=== PATIENT | female | born 1965 ===

== ENCOUNTER → 2020-06-22 | Outpatient (CLI) | payer SELFPAY ==
[~2020-06-22] MED LIST: COVID-19 VACCINE (PFIZER)/PF 30 MCG/0.3 ML VIAL IM ONE; EPINEPHRINE INJ/PF 1 MG/1 ML AMPULE IM PRN
--- OUTSIDE RECORDS SUMMARY | 2020-06-25 10:31 | XMS REPORT ---
:1965 Author Organization [facility] Address [facility] [place] [address] [place] [address] Care Team Providers Name Role Phone KIRIT SOLIZ Primary Care Physician Unavailable NATALEE FISHER Attending Clinician Unavailable Deepak Attending Clinician Unavailable JR MUNOZ Attending Clinician Unavailable Allergies, Adverse Reactions, Alerts Allergy Allergy Type Status Severity Reaction(s) Onset Inactive Treat ing Comments Name Date Date Clinician No Known Propensity Active 2015-05 Drug to adverse - Allergies reactions 00:00: 00 Medications Ordered Filled Start Stop Current Ordering Indication Dosage Frequency Signature Comments Components Medication Medication Date Date Medication? Clinician (SIG) Name Name tamoxifen Yes Malignant TAKE 1 TAKE 1 (NOLVADEX) -14 neoplasm of TABLET BY TABLET BY 20 MG 00:00: upper-outer MOUTH MOUTH tablet 00 quadrant of EVERY DAY GARRETT RY DAY right breast in female, estrogen receptor positive ([facility]) tamoxifen 2019-05- No Malignant 20mg Take 1 Take 1 (NOLVADEX) -22 06-14 neoplasm of tablet (2 0 tablet 20 MG 00:00: 00:00 upper-outer mg total) (20 mg tablet 00 :00 quadrant of by mouth tota l) by right daily. mouth breast in daily. female, estrogen receptor positive ([facility]) SYNTHROID 2019-05 Yes SYNTHROID 88 mcg 0-15 88 mcg tablet 00:00: tablet 00 cholecalcif 2018-05 Yes 5000U Take 5,000 Ta ke daniel, 2-10 Units by 5,000 vitamin D3, 08:13: mouth Units b y (VITAMIN 48 daily. mouth D3) 5,000 daily. unit tablet fish 2018-05 No 2g Take 2 g Take 2 g oil-omega-3 2-10 by mouth by mo ut fatty acids 08:13: daily. daily. 300-1,000 48 mg capsule tamoxifen 2018-05- No Malignant 20mg Take 1 Take 1 (NOLVADEX) 206-13 neoplasm of tablet (2 0 tablet 20 MG 00:00: 00:00 upper-outer mg total) (20 mg tablet 00 :00 quadrant of by mouth tota l) by right daily. mouth female daily. breast ([facility]) tamoxifen 2018- No Malignant 20mg Take 1 Take 1 (NOLVADEX) 06-30 neoplasm of tablet (2 0 tablet 20 MG 00:00: 00:00 upper-outer mg total) (20 mg tablet 00 :00 quadrant of by mouth tota l) by right daily. mouth female daily. breast ([facility]) calcium/mag 2017-05- No calcium/ma /D2/mv,iron 2-05 12-10 g/D2/mv,ir ,min/Zn 13:10: 00:00 on,min/Zn (WHITNEY-MAG- 46 :00 (WHITNEY-MAG-V T IT D2-MULTIVIT D2-MULTIVI REDDY-ZN TAMIN-ZN ORAL) ORAL) alendronate 2017-05- No alendronat sodium 2-05 12-10 e sodium (ALENDRONAT 13:10: 00:00 (ALENDRONA E ORAL) 46 :00 TE ORAL) alendronate 2017-05 No alendronat sodium 2-05 e sodium (ALENDRONAT 13:06: (ALENDRONA E ORAL) 15 TE ORAL) calcium/mag 2017-05 No calcium/ma /D2/mv,iron 2-05 g/D2/mv,ir ,min/Zn 13:06: on,min/Zn (WHITNEY-MAG- 14 (WHITNEY-MAG-V T IT D2-MULTIVIT D2-MULTIVI REDDY-ZN TAMIN-ZN ORAL) ORAL) DOCOSAHEXAN 2017-05 2018- No 1{capsu Take 1 Take 1 OIC 2-05 12-05 le} capsule by capsule ACID/EPA 13:06: 00:00 mouth by mouth (FISH OIL 14 :00 daily. daily. ORAL) tamoxifen 2018- No Malignant TAKE 1 TAKE 1 (NOLVADEX) 06-26 neoplasm of TABLET TA BLET 20 MG 00:00: 00:00 upper-outer DAILY WITH DA VANDANA tablet 00 :00 quadrant of WITH right BREAKFAST BREAKFAST female breast (CMS-HCC) DOCOSAHEXAN 2016-05 No 1{capsu Take 1 Take 1 OIC 2-04 le} capsule by capsule ACID/EPA 08:19: mouth by mouth (FISH OIL 11 daily. daily. ORAL) levothyroxi 2015-05 No Take by Take by ne mouth. mouth. (SYNTHROID) 00:00: 75 MCG 00 tablet levothyroxi 2015-05- No Take by Take by ne 04-22 mouth. mouth. (SYNTHROID) 00:00: 00:00 75 MCG 00 :00 tablet cholecalcif 2015-05 2018- No 2000U Take 2,000 Ta ke daniel, 07-27 12-05 Units by 2,000 vitamin D3, 12:48: 00:00 mouth Units b y 2,000 unit 57 :00 daily with mout h Tab breakfast. daily with breakfast . fish Yes 2g Take 2 g Take 2 g oil-omega-3 by mouth by mo uth fatty acids daily. daily. 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-05-09 syndrome syndrome 2-10 08:55:52 00:00: 00 Osteopenia Osteopenia Condition Active 2017-11-12 of multiple of multiple 6-15 08:55:24 sites sites 00:00: 00 Malignant Malignant Condition Inactiv 2015-052019-05-09 neoplasm of neoplasm of e 2- 07:55:22 upper-outer upper-outer 00:00: quadrant of quadrant of 00 right right breast in breast in female, female, estrogen estrogen receptor receptor positive positive Hyperlipide Hyperlipide Condition Inactiv 2015-052016-05-26 Overview: myrna myrna e 07-27 08:16:35 Overvie w: 00:00: controll e 00 d by t Other and Other and [id number] Active 2020-04-22 Overview: unspecified unspecified 01-01 09:30:47 Overview: hyperlipide hyperlipide 00:00: controlle myrna myrna 00 d by t Overview : Overview : controll e d by t Vitamin D Vitamin D Condition Active 2016-05-26 deficiency deficiency 2-18 08:16:35 00:00: 00 Malignant Malignant [id number] Active 2020-04-22 Overview: neoplasm of neoplasm of 2-18 09:30:47 Overview: upper-outer upper-outer 00:00: Right: quadrant of quadrant of 00 dx'd right right . female female ER/DE breast breast postiive , [id number] variably positive . S/p lumpecto m y with SLND. DD ACx4 followed by Taxol complete d 05/2010 Hercepti n 04/2010- 1 05/2010. Adjuvant XRT 05/2010- 0 07/2010. Tamoxife n 07/2010- o ngoing. Procedures Procedure Date / Time Performed Performing Clinician Brett olson MAMMOGRAPHY 2019-05-25 22:46:00 Provider, Historical DEXA BONE DENSITY SKELETAL 2017-11-11 17:15:36 Nathaniel Munoz Am Results Test Description Test Time Test Comments Text Results Atomic Results Result Comments SARS-CoV-2 RNA Nose Ql ASHLYN+probe 2020-06-01 00:00:00 Test Item Value Reference Range Comments SARS-CoV-2 RNA Nose Ql ASHLYN+probe Detected [place] [facility] Case ID: (test code = [id number]) [id number] SARS-CoV-2 RNA Nose Ql ASHLYN+[id number] 00:00:00 Test Item Value Reference Range Comments SARS-CoV-2 RNA Nose Ql Detected [place] [facility] Case ID: ASHLYN+probe (test code = [id number]) SARS-CoV-2 RNA Nose Ql [id number] 00:00:00 Test Item Value Reference Range Comments SARS-CoV-2 RNA Nose Ql Not detected [place] [facility] Case ASHLYN+probe (test code = ID: [id number]) #[id number] 00:00:00HM MAMMOGRAPHY (05/25/2019 5:46 PM EST)NarrativePerformed At #[id number] 17:30:01Dexa Bone Density Skeletal (11/11/2017 1:15 PM EDT)SpecimenImpressionsPerformed AtLow bone density (o steopenia). Followup evaluation in 2 years is recommended. Signed (Electronic Signature): 11/11/2017 5:32 PM Signed By: GIANFRANCO Mena RADNarrativePerformed AtExam:Bone Densitometry History: 51-year-old Postmenopausal female. Technique:Standard bone densitometry protocol. priors: None Findings: LUMBAR SPINE:The lumbar spine yields a T score of -1.0 for the L1-L4 region. LEFT FEMUR:The femoral neck yields a T score of: -1.3 The totalfemur yields a T score of: -0.6 RIGHT FEMUR: The femoral neck yields a T score of: -1.6 The total femur yields a T score of: -0.8 FRAX analysis reveals a 10 year probability of major osteoporotic fracture of4.9 % FRAX analysis reveals a 10 year probability of hip fracture of 0.4 % [facility] [place] RADProcedure NoteInterface, Rad Results In - 11/11/2017 5:34 PM EDTExam: Bone Densitometry History: 51-year-old Postmenopausal female. Technique: Standard bone densitometry protocol . priors: None Findings: LUMBAR SPINE: The lumbar spine yields a T score of -1.0 for theL1-L4 region. LEFT FEMUR: The femoral neck yields a T score of: -1.3 The total femur yields a T score of: -0.6 RIGHT FEMUR: The femoral neck yields a T score of: -1.6 The total femur yields a T score of: -0.8 FRAX analysis reveals a 10 year probability of major osteoporotic fracture of 4.9 % FRAX analysis reveals a 10 year probability of hip fracture of 0.4 % IMPRESSION: Low bone density (osteopenia). Followup evaluation in 2 years is recommended. Signed (Electronic Signature): 11/11/2017 5:32 PM Signed By: NICOLE Menaerforming OrganizationAddressCity/State/ZipcodePhone NumberBA[facility] [place] [address] [place] [address] Encounters Start End Encounter Admission Attending Care Care Encounter ID Date/Time Date/Time Type Type Clinicians Facility Department 2020-06-13 2020-06-13 Outpatient [facility] [id number] 00:00:00 00:00:00 2020-05-14 2020-05-14 Outpatient [facility] [id number] 00:00:00 00:00:00 [id number] 2020-04-22 2020-04-22 Outpatient [facility] [id number] 08:06:30 09:00:22 [id number] 2020-04-22 2020-04-22 [facility] [id number] 08:06:30 09:00:22 2020-04-22 2020-04-22 Outpatient [facility] [id number] 00:00:00 00:00:00 [id number] 2020-04-22 2020-04-22 [facility] [id number] 00:00:00 00:00:00 2019-11-06 2019-11-06 Outpatient Marina CONRAD 1 [id number] 08:59:00 23:59:00 CONSUELO 2019-08-11 2019-08-11 [facility] [id number] 00:00:00 00:00:00 2019-08-11 2019-08-11 [facility] [id number] 00:00:00 00:00:00 2019-08-11 2019-08-11 [facility] [id number] 00:00:00 00:00:00 2019-05-25 2019-05-25 [facility] [id number] 00:00:00 00:00:00 2019-05-09 2019-05-09 [facility] [id number] 07:52:13 08:48:55 2019-05-09 2019-05-09 Outpatient [facility] [id number] 07:52:13 08:48:55 [id number] 2019-05-09 2019-05-09 [facility] [id number] 00:00:00 00:00:00 2018-09-21 2018-09-21 R [facility] [id number] 13:17:57 15:10:52 [id number] 2018-09-21 2018-09-21 [facility] [id number] 13:17:57 14:17:57 2018-09-21 2018-09-21 [facility] [id number] 00:00:00 00:00:00 [id number] 2018-09-09 2018-09-09 [facility] [id number] _[id number] 13:58:35 15:21:58 [id number] 2018-09-09 2018-09-09 [facility] [id number] 13:58:35 15:21:58 2018-09-09 2018-09-09 [facility] [id number] 00:00:00 00:00:00 [id number] 2018-08-29 2018-08-29 LENA Johnson [id number] 13:30:00 13:30:00 Diagnosis Brennen [id number] 2018-08-26 2018-08-26 R [facility] [id number] _[id number] 14:18:57 15:10:58 [id number] 2018-08-26 2018-08-26 [facility] [id number] 14:18:57 15:10:58 2018-08-26 2018-08-26 R [facility] [id number] 00:00:00 00:00:00 [id number] 2018-08-22 2018-08-22 MARION [id number] [id number] 13:30:00 13:30:00 Diagnosis Brennen [id number] 2018-07-26 2018-07-26 [facility] [id number] 12:37:26 13:48:16 2018-07-26 2018-07-26 R [facility] [id number] _[id number] 12:37:26 13:48:16 [id number] 2018-07-26 2018-07-26 R [facility] [id number] 00:00:00 00:00:00 [id number] 2018-06-09 2018-06-09 [facility] [id number] 00:00:00 00:00:00 2018-06-09 2018-06-09 [facility] [id number] 00:00:00 00:00:00 2018-06-09 2018-06-09 [facility] [id number] 00:00:00 00:00:00 2018-06-07 2018-06-07 [facility] [id number] 00:00:00 00:00:00 2018-05-30 2018-05-30 [facility] [id number] 00:00:00 00:00:00 2018-05-09 2018-05-09 [facility] [id number] 00:00:00 00:00:00 2018-05-04 2018-05-04 Outpatient [facility] [id number] 12:50:39 13:51:26 [id number] 2018-05-04 2018-05-04 [facility] [id number] 00:00:00 00:00:00 2018-04-04 2018-04-04 [facility] [id number] 00:00:00 00:00:00 2018-04-04 2018-04-04 [facility] [id number] 00:00:00 00:00:00 2018-01-18 2018-01-18 [facility] [id number] 00:00:00 00:00:00 2018-01-17 2018-01-17 [facility] [id number] 00:00:00 00:00:00 2018-01-12 2018-01-12 [facility] [id number] 00:00:00 00:00:00 2018-01-12 2018-01-12 [facility] [id number] 00:00:00 00:00:00 2017-12-07 2017-12-07 [facility] [id number] 00:00:00 00:00:00 2017-11-16 2017-11-16 [facility] [id number] 00:00:00 00:00:00 2017-11-12 2017-11-12 [facility] [id number] 00:00:00 00:00:00 2017-11-12 2017-11-12 [facility] [id number] 00:00:00 00:00:00 2017-11-11 2017-11-11 Outpatient OLIVIA MUNOZ [facility] [id number] 12:49:01 23:59:00 NATHANIEL [id number] 2017-11-11 2017-11-11 [facility] [id number] 12:49:01 23:59:00 2017-11-11 2017-11-11 Outpatient [facility] [id number] 00:00:00 00:00:00 [id number] 2017-05-03 2017-05-03 Outpatient [facility] [id number] 07:59:49 08:57:41 [id number] Immunizations Ordered Immunization Filled Immunization Date Status Commen ts Refusal Reason Name Name INFLUENZA INJ MDCK 2020-02-27 Completed PF, Quad 00:00:00 (Flucelvax)(4y and up Egg Free) SHINGRIX-ZOSTER 2020-01-29 Completed VACCINE (HZV), 00:00:00 RECOMBINANT,SUB-UNIT ,ADJUVANTED IM INFLUENZA TIV (TRI) 2019-03-04 Completed PF (IM) 00:00:00 Influenza Vaccine 2018-03-13 Completed Quad (IIV4 PF) 6mo+ 00:00:00 injectable INFLUENZA TIV (TRI) 2018-03-13 Completed PF (IM) 00:00:00 Influenza Vaccine 2017-03-13 Completed Quad (IIV4 PF) 6mo+ 00:00:00 injectable INFLUENZA TIV (TRI) 2017-03-13 Completed PF (IM) 00:00:00 INFLUENZA TIV (TRI) 2017-03-13 Completed 6MO+ W/ PRESERV (IM) 00:00:00 Influenza Virus 2016-02-27 Completed Vaccine, unspecified 00:00:00 formulation Influenza Vaccine 2014-03-17 Completed Quad (IIV4 00:00:00 W/PRESERV) 6MO+ Influenza Vaccine 2013-03-17 Completed Quad (IIV4 00:00:00 W/PRESERV) 6MO+ INFLUENZA TIV (TRI) 2013-01-29 Completed PF (IM) 00:00:00 INFLUENZA TIV (TRI) 2012-02-27 Completed 6MO+ W/ PRESERV (IM) 00:00:00 TdaP 2011-12-15 Completed 00:00:00 Payers Payer Name Policy Type Policy Number Effective Date Expiration D ate UMR [id number] 2018 00:00:00 [facility]) [id number] 2014 00:00:00 Plan of Treatment Planned Activity Planned Date Details Comments Future Scheduled Test [code = ] Future Scheduled Test [code = ] Future Scheduled Test [code = ] Future Scheduled Test [code = ] Future Scheduled Test [code = ] Future Scheduled Test [code = ] Future Scheduled Test [code = ] Future Scheduled Test [code = ] Future Scheduled Test [code = ] Future Scheduled Test [code = ] Future Scheduled Test [code = ] Future Scheduled Test [code = ] Future Scheduled Test [code = ] Future Scheduled Test [code = ] Future Scheduled Test [code = ] Future Scheduled Test [code = ] Future Scheduled Test [code = ] Social History Social Habit Start Date Stop Date Comments Tobacco smoking status NHIS 2020-04-22 00:00:00 2020-04-22 00:00 :00 Alcohol intake 2020-04-22 00:00:00 2020-04-22 00:00:00 Tobacco use and exposure 2020-04-22 00:00:00 2020-04-22 00:00:00 Alcohol Comment 2016-07-31 00:00:00 2016-07-31 00:00:00 Vital Signs Vital Name Observation Time Observation Value Comments Systolic blood pressure 2020-04-22 08:19:00 136 mm[Hg] Diastolic blood pressure 2020-04-22 08:19:00 86 mm[Hg] Heart rate 2020-04-22 08:19:00 82 /min Body temperature 2020-04-22 08:19:00 36.28 Sarah Respiratory rate 2020-04-22 08:19:00 17 /min Body height 2020-04-22 08:19:00 162.6 cm Body weight 2020-04-22 08:19:00 80.786 kg Oxygen saturation in Arterial blood by 2020-04-22 08:19:00 98 % Pulse oximetry Systolic blood pressure 2019-05-09 08:12:00 137 mm[Hg] Diastolic blood pressure 2019-05-09 08:12:00 83 mm[Hg] Heart rate 2019-05-09 08:12:00 79 /min Body temperature 2019-05-09 08:12:00 37.06 Sarah Respiratory rate 2019-05-09 08:12:00 16 /min Body height 2019-05-09 08:12:00 162.6 cm Body weight 2019-05-09 08:12:00 79.788 kg
== END ==
LOC: EMPHEALTH 16:08
PROVIDERS: ATTEND Internal Medicine
DX: Z23 Encounter for immunization (principal)
CPT/HCPCS: 91300